=== PATIENT | female | born 1985 | race Caucasian/White ===

== ENCOUNTER 2021-01-30 06:30 | Emergency (ER) | payer BC, OTHER ==
[~2021-01-30] VITALS: Ht 162.6 cm; Wt 95.2 kg
[2021-01-30] MEDS ORDERED: ATIVAN1 MG PO (08:45)
[2021-01-30] MEDS ORDERED: ONDANSETRON ODT8 MG PO (08:45)
== END 2021-01-30 09:00 | disposition home or self-care (01) ==
LOC: ED 06:30
DX: H83.09 Labyrinthitis, unspecified ear (principal)
CPT/HCPCS: 80053; 84703; 85025; 96374; 96375; 99284-25; J2060; J2405; J7030

== ENCOUNTER 2022-05-06 17:45 | Inpatient (IN) | payer OTHER ==
[~2022-05-06] VITALS: Ht 162.6 cm; Wt 111.6 kg
[~2022-05-06 17:45] MED LIST: ATIVAN1 MG PO; ONDANSETRON ODT8 MG PO
--- NOTE | 2022-05-07 03:35 | PR ---
[facility] [address] [facility] [place], [place] [address] Signed Progress Notes IP Datetime Report Generated by CPN: 05/07/2022 03:35 PROGRESS NOTES: [id number] Procedures: Epidural Placement Plan: Anesthesia Consult VITAL SIGNS: [id number] Vital Signs: Reviewed VS Notable Details: elevated BP, no severe-range pressures EXAM: [id number] Dilatation: 4.0 Effacement: 95 Station: -2 Contractions: q2-5 min MEMBRANES: [id number] Membranes Status: Ruptured Comments: Pt unable to get relief from epidural, second jewel hole rough opener arrived to re-attempt epidural. FETUS A: [id number] FHR Baseline: 135 Variability: Absent - Undetectable Accelerations: 15X15 Decelerations: None FHR Category: Category I Presentation: Vertex Comments on Fetus A: No evidence of acidemia FETUS B: [id number] Signing Physician: Kieran Yadav DO Copies: ~ *Electronically Signed* 05/07/22 0335 KIERAN YADAV DO PATIENT NAME: NAIF BARAJAS PROGRESS NOTE DATE OF : 89 PHYSICIAN: KIERAN YADAV DO [facility] #: [phone] REPORT IS CONFIDENTIAL AND NOT TO BE RELEASED WITHOUT AUTHORIZATION
--- NOTE | 2022-05-08 11:18 | PR ---
[facility] [address] [place], [place] [address] Signed PP Progress Notes Datetime Report Generated by CPN: 05/08/2022 11:18 SUBJECTIVE: [id number] Pain: Within Normal Limits Nausea/Vomiting: Denies Flatus: Yes Vital Signs: [id number] Vital Signs: Reviewed Notable Details: elevated, non-severe BP Cardiovascular: Normal Respiratory: Normal Abdomen/Uterus: Normal Lochia: Normal Extremities: Normal Exam Comments: NAD sitting in bed RRR No dyspnea/ retractions Abd SNTND, FFBU Ext: no edema, neg Alexus's BL IMPRESSION/PLAN/PROCEDURES: [id number] Impression: Normal Progression; Induced Hypertension Plan: Continue Present Management; Discharge Progress Notes: Pt is a 36 yo PPD#1 s/p -admitted for [facility] for gHTN: mildly elevated BP , no headaches/ vision changes/ RUQ pain -progressing well : ambulating, voiding, tolerating regular diet, pain well-controlled with motrin, lochia light, without difficulty, desires pill for contraception -reviewed importance of GTT and regular screening for HTN/ GDM Anticipate DC to home today with BP check on Tuesday (2d) in office. Signing Physician: Kieran Yadav DO Copies: ~ *Electronically Signed* 05/08/22 1118 KIERAN YADAV DO PATIENT NAME: NAIF BARAJAS PROGRESS NOTE DATE OF : 89 PHYSICIAN: KIERAN YADAV DO [facility] #: [id number] REPORT IS CONFIDENTIAL AND NOT TO BE RELEASED WITHOUT AUTHORIZATION
== END 2022-05-08 13:13 | disposition home or self-care (01) | DRG 806 ==
LOC: FBC 17:45
PROVIDERS: ADMIT Obstetrics & Gynecology; ATTEND Obstetrics & Gynecology
PROC: 10E0XZZ Delivery of Products of Conception, External Approach (ICD-10-PCS; principal; 2022-05-07)
PROC: 00HU33Z Insertion of Infusion Device into Spinal Canal, Percutaneous Approach (ICD-10-PCS; 2022-05-07)
PROC: 3E0R3BZ Introduction of Anesthetic Agent into Spinal Canal, Percutaneous Approach (ICD-10-PCS; 2022-05-07)
PROC: 3E0P7VZ Introduction of Hormone into Female Reproductive, Via Natural or Artificial Opening (ICD-10-PCS; 2022-05-07)
PROC: 0HQ9XZZ Repair Perineum Skin, External Approach (ICD-10-PCS; 2022-05-07)
DX: O13.4 Gestational [pregnancy-induced] hypertension without significant proteinuria, complicating childbirth (principal); O98.52 Other viral diseases complicating childbirth; Z37.0 Single live birth; O99.324 Drug use complicating childbirth; Z3A.39 39 weeks gestation of pregnancy; F12.90 Cannabis use, unspecified, uncomplicated; Z20.822 Contact with and (suspected) exposure to COVID-19; Z67.30 Type AB blood, Rh positive; O70.0 First degree perineal laceration during delivery; O24.429 Gestational diabetes mellitus in childbirth, unspecified control; B00.9 Herpesviral infection, unspecified
CPT/HCPCS: 36415; 80053; 81001; 82570; 82803; 83615; 84156; 84550; 85027; 86850; 86900; 86901; 87088; 87502; A9270; C9803; J2370; J2405; J2590; J2704; J7121; U0003